=== PATIENT | female | born 1945 | race Caucasian/White ===

== ENCOUNTER 2016-10-10 15:59 | Emergency (ER) | payer MEDICARE ==
[~2016-10-10] VITALS: Ht 154.9 cm; Wt 53.2 kg
[~2016-10-10 15:59] MED LIST: ASCO100089 PO; ASPI-628 PO; CALC-762 PO; TRAZ-118 PO; VITAMIN D3
[2016-10-10 16:04] VITALS: BP 153/91; PULSE 61; RESP 20; O2SAT 99
[2016-10-10 16:50] VITALS: BP 139/69; PULSE 56; RESP 20; O2SAT 100
[2016-10-10 17:25] LABS: BASOPHILS % (AUTO) 0.1 % (0-3); EOSINOPHILS % (AUTO) 0.3 % (0-5); MONOCYTES % (AUTO) 5.2 % (4-12); Mean Corpuscular Hemoglobin 29.3 pg (27.0-35.0); Mean Corpuscular Volume 86.1 fL (81-100); NEUTROPHILS % (AUTO) 79.5 % (40-74); Platelet Count 217 bil/L (150-400)
--- NOTE | 2016-10-10 17:40 | DRSVH ---
PROCEDURE: X-RAY CHEST ONE VIEW, PORTABLE ([id number]) INDICATIONS: fatigue TECHNIQUE: One view of the chest was acquired. COMPARISON: None. FINDINGS: Surgical changes and devices: None. Lungs and pleura: No pleural effusions or pneumothorax. Lungs are clear. Mediastinum: Mediastinal contours appear normal. Heart size is normal. Bones and chest wall: No suspicious bony lesions. Overlying soft tissues appear unremarkable. IMPRESSION: 1. No acute cardiopulmonary disease. Dictated by: Darvin Bird M.D. on 10/10/2016 at 17:33 Approved by: Darvin Bird M.D. on 10/10/2016 at 17:33
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
--- NOTE | 2016-10-10 17:47 | DRSVH ---
PROCEDURE: CT BRAIN WITHOUT CONTRAST ([id number]) INDICATIONS: confusion, speech changes. TECHNIQUE: Noncontrast 4.5 mm thick angled axial sections acquired from the foramen magnum to the vertex, with c oronal reformats. COMPARISON: None. FINDINGS: Image quality: Excellent. CSF spaces: Basal cisterns are patent. No extra-axial fluid collections. The ventricles are symmet jory in size and shape. Brain: No intracranial hemorrhage, mass, or mass effect. There is cerebral volume loss for age, wit h resultant ventricular and sulcal prominence. There are periventricular and deep white matter chron ic small vessel ischemic changes. There is intracranial internal carotid artery atherosclerosis. Skull and face: Calvarium and visualized facial bones appear intact, without suspicious lesions. Sinuses: Visualized sinuses and mastoids are clear. IMPRESSION: 1. No acute intracranial abnormality. Dictated by: Darvin Bird M.D. on 10/10/2016 at 17:43 Approved by: Darvin Bird M.D. on 10/10/2016 at 17:45
[2016-10-10 17:50] LABS: TROPONIN T < 0.010 ug/L (0.0-0.011)
[2016-10-10 18:00] LABS: Magnesium 2.1 mg/dL (1.6-2.6)
[2016-10-10 18:35] VITALS: BP 156/81; PULSE 70; RESP 13; O2SAT 98
[2016-10-10 19:01] VITALS: BP 167/72; PULSE 58; RESP 14; O2SAT 100
[2016-10-10 19:08] VITALS: BP 167/72; PULSE 58; RESP 14; O2SAT 100
== END 2016-10-10 19:09 | disposition home or self-care (01) ==
LOC: SED 15:59
DX: R53.83 Other fatigue (principal); F43.0 Acute stress reaction; F41.9 Anxiety disorder, unspecified; R07.89 Other chest pain; R42 Dizziness and giddiness; I10 Essential (primary) hypertension; Z79.82 Long term (current) use of aspirin; Z79.891 Long term (current) use of opiate analgesic